=== PATIENT | female | born 1975 | race Caucasian/White ===

== ENCOUNTER 2018-01-10 15:22 | Emergency (ER) | payer OTHER, MEDICAID ==
[~2018-01-10] VITALS: Ht 170.2 cm; Wt 80.0 kg
[~2018-01-10 15:22] MED LIST: ASPI81TA33 PO; FLUO-191 PO; GABA-533 PO
[2018-01-10] MEDS ORDERED: PREG50 PO (15:29)
[2018-01-10] MEDS ORDERED: BREX1TAB PO (15:29)
[2018-01-10] MEDS ORDERED: ONDANSETRON HCL 4 MG/2 ML VIAL IVP ONE (16:30)
[2018-01-10] MEDS ORDERED: SODIUM CHLORIDE 0.9% 1,000 ML IV ONE (16:30)
[2018-01-10] MEDS ORDERED: DiphenhydrAMINE HCL 50 MG/ML VIAL IVP ONE (16:30)
[2018-01-10] MEDS ORDERED: KETOROLAC TROMETHAMINE 30 MG/ML VIAL IVP ONE (16:30)
[2018-01-10] MEDS ORDERED: MORPHINE SULFATE 4 MG/ML SYRINGE IVP ONE (18:00)
[2018-01-10 19:03] VITALS: BP 111/59
== END 2018-01-10 19:17 | disposition home or self-care (01) ==
LOC: EDUNIT# 15:22 → EMS 15:24
DX: G43.909 Migraine, unspecified, not intractable, without status migrainosus (principal); G35 Multiple sclerosis; G89.29 Other chronic pain; F17.210 Nicotine dependence, cigarettes, uncomplicated; Z79.82 Long term (current) use of aspirin; Z86.73 Personal history of transient ischemic attack (TIA), and cerebral infarction without residual deficits
CPT/HCPCS: 70450; 82962; 96374; 96375; 99285; 99406; J1200; J1885; J2270; J2405; J7030

== ENCOUNTER 2018-05-08 08:24 | Emergency (ER) | payer OTHER, MEDICAID ==
[~2018-05-08] VITALS: Ht 170.2 cm; Wt 88.6 kg
[~2018-05-08 08:24] MED LIST changes: -ASPI81TA33 PO; +ASPI81TA87 PO; +BREX1TAB PO; +PREG50 PO
[2018-05-08] MEDS ORDERED: [UNRECOGNIZED DRUG - REMARK] PO (08:30)
[2018-05-08 10:34] VITALS: BP 134/84
[2018-05-08] MEDS ORDERED: HYDROCODONE/ACETAMINOPHEN 5-325 MG TABLET PO ONE (11:00)
[2018-05-08] MEDS ORDERED: KETOROLAC TROMETHAMINE 30 MG/ML VIAL IM ONE (11:00)
== END 2018-05-08 12:26 | disposition home or self-care (01) ==
LOC: EMS 08:29
DX: S76.011A Strain of muscle, fascia and tendon of right hip, initial encounter (principal); S76.012A Strain of muscle, fascia and tendon of left hip, initial encounter; F17.210 Nicotine dependence, cigarettes, uncomplicated; G89.29 Other chronic pain; Z86.73 Personal history of transient ischemic attack (TIA), and cerebral infarction without residual deficits; X58.XXXA Exposure to other specified factors, initial encounter; Y93.89 Activity, other specified; Y92.89 Other specified places as the place of occurrence of the external cause; Y99.8 Other external cause status
CPT/HCPCS: 73521; 96372; 99284; J1885

== ENCOUNTER 2018-09-06 20:26 | Emergency (ER) | payer OTHER, MEDICAID ==
[~2018-09-06] VITALS: Ht 170.2 cm; Wt 88.0 kg
[~2018-09-06 20:26] MED LIST changes: -ASPI81TA87 PO; -FLUO-191 PO; -GABA-533 PO; -PREG50 PO; +[UNRECOGNIZED DRUG - REMARK] PO
[2018-09-06] MEDS ORDERED: GABA-531 PO (21:49)
[2018-09-06 22:03] LABS: AMPHET/METH SCREEN,URINE NEGATIVE (NEGATIVE); BARBITURATE SCREEN, URINE NEGATIVE (NEGATIVE); BENZODIAZEPINES SCREEN,URINE NEGATIVE (NEGATIVE); CANNABINOID SCREEN,URINE POSITIVE (NEGATIVE); COCAINE SCREEN,URINE NEGATIVE (NEGATIVE); METHADONE SCREEN, URINE NEGATIVE (NEGATIVE); OPIATE SCREEN,URINE NEGATIVE (NEGATIVE); PHENCYCLIDINE SCREEN,URINE NEGATIVE (NEGATIVE)
[2018-09-06 22:13] LABS: BASOPHILS % (AUTO) 1.2 % (0.0-2.0); EOSINOPHILS % (AUTO) 2.8 % (1.0-6.0); HEMATOCRIT 39.9 % (36-46); HEMOGLOBIN 13.5 g/dL (12.0-16.0); LYMPHOCYTES % (AUTO) 43.2 % (22.0-44.0); MEAN CORPUSCULAR HEMOGLOBIN 32.3 pg (26.0-34.0); MEAN CORPUSCULAR HGB CONC 33.9 G/dL (31.0-37.0); MEAN CORPUSCULAR VOLUME 95 fL (80-100); MONOCYTES # (AUTO) 0.4 K/uL (0.1-1.0); MONOCYTES % (AUTO) 6.1 % (2.0-9.0); NEUTROPHILS # (AUTO) 3.2 K/uL (1.8-7.7); NEUTROPHILS % (AUTO) 46.7 % (40.0-70.0); PLATELET COUNT (AUTO) 172 K/uL (150-450); RED BLOOD CELL COUNT(AUTO) 4.19 MIL/uL (4.00-5.20); RED CELL DISTRIBUTION WIDTH 14.2 % (11.5-14.5)
[2018-09-06 22:24] LABS: ANION GAP 13 mmol/L (8-16); CALCIUM, TOTAL 8.5 mg/dL (8.8-10.5); CARBON DIOXIDE 20 mmol/L (22-29); CHLORIDE 108 mmol/L (98-107); GLOMERULAR FILTR. RATE CALC > 60 mL/min (>60); GLUCOSE,RANDOM 91 mg/dL (70-110); POTASSIUM 3.8 mmol/L (3.5-5.1); SODIUM SERUM 141 mmol/L (136-145); UREA NITROGEN, BLOOD 4 mg/dL (7-18)
[2018-09-06 22:30] LABS: ALANINE AMINOTRANSFERASE 16 U/L (12-78); ALBUMIN 3.8 g/dL (3.4-5.0); ALKALINE PHOSPHATASE 69 U/L (46-116); ASPARTATE AMINOTRANSFERASE 9 U/L (15-37); BILIRUBIN,TOTAL 0.2 mg/dL (0.1-1.0); TOTAL PROTEIN, SERUM 7.1 g/dL (6.4-8.2)
[2018-09-06] MEDS ORDERED: HALOPERIDOL 5 MG TABLET PO ONE (22:30)
[2018-09-06 23:11] VITALS: BP 113/71
== END 2018-09-06 23:15 | disposition home or self-care (01) ==
LOC: EMS 20:27
DX: F25.9 Schizoaffective disorder, unspecified (principal); F31.9 Bipolar disorder, unspecified; F17.210 Nicotine dependence, cigarettes, uncomplicated; F12.90 Cannabis use, unspecified, uncomplicated; G89.29 Other chronic pain; Z86.73 Personal history of transient ischemic attack (TIA), and cerebral infarction without residual deficits
CPT/HCPCS: 36415; 80053; 80307; 85025; 99285; G0480

== ENCOUNTER 2020-03-09 10:50 | Emergency (ER) | payer OTHER, MEDICAID ==
[~2020-03-09] VITALS: Ht 167.6 cm; Wt 79.1 kg
[~2020-03-09 10:50] MED LIST changes: +GABA-1181 PO; -[UNRECOGNIZED DRUG - REMARK] PO
[2020-03-09] MEDS ORDERED: ARIP5TAB8 PO (11:19)
[2020-03-09] MEDS ORDERED: ERGO500054 PO (11:19)
[2020-03-09] MEDS ORDERED: SERT50TA12 PO (11:19)
[2020-03-09 12:02] LABS: EOSINOPHILS % (AUTO) 5.4 % (1.0-6.0); HEMATOCRIT 41.9 % (36-46); HEMOGLOBIN 13.9 g/dL (12.0-16.0); LYMPHOCYTES # (AUTO) 1.6 K/uL (1.0-4.8); LYMPHOCYTES % (AUTO) 31.6 % (22.0-44.0); MEAN CORPUSCULAR HEMOGLOBIN 32.6 pg (26.0-34.0); MEAN CORPUSCULAR HGB CONC 33.2 G/dL (31.0-37.0); MEAN CORPUSCULAR VOLUME 98 fL (80-100); MONOCYTES # (AUTO) 0.4 K/uL (0.1-1.0); MONOCYTES % (AUTO) 7.5 % (2.0-9.0); NEUTROPHILS # (AUTO) 2.7 K/uL (1.8-7.7); NEUTROPHILS % (AUTO) 54.5 % (40.0-70.0); PLATELET COUNT (AUTO) 171 K/uL (150-450); RED BLOOD CELL COUNT(AUTO) 4.26 MIL/uL (4.00-5.20); RED CELL DISTRIBUTION WIDTH 14.2 % (11.5-14.5)
[2020-03-09 12:24] LABS: ANION GAP 8 mmol/L (8-16); CALCIUM, TOTAL 8.8 mg/dL (8.8-10.5); CARBON DIOXIDE 25 mmol/L (22-29); CHLORIDE 108 mmol/L (98-107); CREATININE 0.79 mg/dL (0.60-1.30); GLOMERULAR FILTR. RATE CALC > 60 mL/min (>60); GLUCOSE,RANDOM 94 mg/dL (70-110); POTASSIUM 3.9 mmol/L (3.5-5.1); SODIUM SERUM 141 mmol/L (136-145); UREA NITROGEN, BLOOD 8 mg/dL (7-18)
[2020-03-09 12:26] LABS: B-TYPE NATRIURETIC PEPTIDE 48 pg/mL (0-100)
[2020-03-09 12:29] LABS: ALANINE AMINOTRANSFERASE 25 U/L (12-78); ALKALINE PHOSPHATASE 67 U/L (46-116); ASPARTATE AMINOTRANSFERASE 14 U/L (15-37); BILIRUBIN,TOTAL 0.2 mg/dL (0.1-1.0); TOTAL PROTEIN, SERUM 7.4 g/dL (6.4-8.2)
[2020-03-09 12:56] VITALS: BP 102/58
== END 2020-03-09 13:11 | disposition home or self-care (01) ==
LOC: EMS 10:53
DX: R06.02 Shortness of breath (principal); F17.210 Nicotine dependence, cigarettes, uncomplicated; F12.90 Cannabis use, unspecified, uncomplicated; F32.89 Other specified depressive episodes; Z03.818 Encounter for observation for suspected exposure to other biological agents ruled out; Z86.73 Personal history of transient ischemic attack (TIA), and cerebral infarction without residual deficits; Z79.899 Other long term (current) drug therapy
CPT/HCPCS: 85379; 87635; 93005

== ENCOUNTER 2020-05-04 16:54 | Emergency (ER) | payer OTHER, MEDICAID ==
[~2020-05-04 16:54] MED LIST changes: +ARIP5TAB8 PO; -BREX1TAB PO; +ERGO500054 PO; -GABA-1181 PO; +SERT50TA12 PO
[2020-05-04 17:49] LABS: BASOPHILS % (AUTO) 0.9 % (0.0-2.0); EOSINOPHILS % (AUTO) 2.9 % (1.0-6.0); HEMATOCRIT 37.9 % (36-46); MEAN CORPUSCULAR HEMOGLOBIN 33.4 pg (26.0-34.0); MEAN CORPUSCULAR HGB CONC 34.3 G/dL (31.0-37.0); MEAN CORPUSCULAR VOLUME 98 fL (80-100); MONOCYTES # (AUTO) 0.4 K/uL (0.1-1.0); MONOCYTES % (AUTO) 6.3 % (2.0-9.0); NEUTROPHILS # (AUTO) 3.7 K/uL (1.8-7.7); NEUTROPHILS % (AUTO) 57.9 % (40.0-70.0); PLATELET COUNT (AUTO) 157 K/uL (150-450); RED BLOOD CELL COUNT(AUTO) 3.89 MIL/uL (4.00-5.20)
[2020-05-04 18:05] LABS: ANION GAP 9 mmol/L (8-16); CARBON DIOXIDE 26 mmol/L (22-29); CHLORIDE 106 mmol/L (98-107); CREATININE 0.77 mg/dL (0.60-1.30); GLOMERULAR FILTR. RATE CALC > 60 mL/min (>60); GLUCOSE,RANDOM 93 mg/dL (70-110); POTASSIUM 3.6 mmol/L (3.5-5.1); SODIUM SERUM 141 mmol/L (136-145); UREA NITROGEN, BLOOD 9 mg/dL (7-18)
[2020-05-04 18:13] LABS: B-TYPE NATRIURETIC PEPTIDE 31 pg/mL (0-100)
[2020-05-04 18:19] LABS: LACTIC ACID 0.5 mmol/L (0.4-2.0)
[2020-05-04 18:23] LABS: ALANINE AMINOTRANSFERASE 28 U/L (12-78); ALBUMIN 3.7 g/dL (3.4-5.0); ALKALINE PHOSPHATASE 61 U/L (46-116); ASPARTATE AMINOTRANSFERASE 18 U/L (15-37); BILIRUBIN,TOTAL 0.3 mg/dL (0.1-1.0); CREATINE KINASE, TOTAL ONLY 52 U/L (26-192); FREE T4 (FREE THYROXINE) 1.05 ng/dL (0.76-1.46); HCG,QUANTITATIVE 1 mIU/mL (0-6); THYROID STIMULATING HORMONE 1.98 uIU/mL (0.36-3.74); TOTAL PROTEIN, SERUM 7.2 g/dL (6.4-8.2)
[2020-05-04 18:58] LABS: APPEARANCE,URINE CLEAR (CLEAR); BILIRUBIN,URINE NEGATIVE (NEGATIVE); GLUCOSE, URINE (UA) NEGATIVE (NEGATIVE); KETONES,URINE NEGATIVE (NEGATIVE); LEUKOCYTE ESTERASE ,URINE NEGATIVE (NEGATIVE); NITRATE,URINE NEGATIVE (NEGATIVE); OCCULT BLOOD,URINE NEGATIVE (NEGATIVE); PROTEIN,URINE NEGATIVE (NEGATIVE); UROBILINOGEN,URINE 0.2 mg/dL (<=1.0)
[2020-05-04 19:29] VITALS: BP 132/73
[2020-05-04 19:34] LABS: BACTERIA,URINE None Seen /HPF (None Seen); RBC,URINE None Seen /HPF (0-2); SQUAMOUS EPITHELIAL CELL,UR Few /LPF (None Seen); WBC,URINE 0-2 /HPF (0-5)
== END 2020-05-04 20:03 | disposition home or self-care (01) ==
LOC: EMS 16:54
DX: R00.2 Palpitations (principal); R53.83 Other fatigue; F32.9 Major depressive disorder, single episode, unspecified; F17.210 Nicotine dependence, cigarettes, uncomplicated; F12.90 Cannabis use, unspecified, uncomplicated
CPT/HCPCS: 83605; 83735; 84439; 84443; 85379; 93005

== ENCOUNTER 2022-04-15 17:35 | Emergency (ER) | payer OTHER, MEDICAID ==
[~2022-04-15] VITALS: Ht 170.2 cm; Wt 84.5 kg
[~2022-04-15 17:35] MED LIST changes: +ARIP5TAB37 PO; -ARIP5TAB8 PO; +SERT-158 PO; -SERT50TA12 PO
[2022-04-15] MEDS ORDERED: ERGO500054 PO (18:15)
[2022-04-15] MEDS ORDERED: CYCLOBENZAPRINE HCL 10 MG TABLET PO ONE (18:15)
[2022-04-15] MEDS ORDERED: VENL-68 PO (18:15)
[2022-04-15] MEDS ORDERED: HYDROCODONE/ACETAMINOPHEN 5-325 MG TABLET PO ONE (18:15)
[2022-04-15] MEDS ORDERED: LIDOCAINE 5% TRANSDERMAL PATCH TD ONE (18:15)
[2022-04-15 19:08] VITALS: BP 109/64
== END 2022-04-15 19:42 | disposition home or self-care (01) ==
LOC: EMS 17:50
DX: M54.16 Radiculopathy, lumbar region (principal); F32.A Depression, unspecified; G35 Multiple sclerosis; M06.9 Rheumatoid arthritis, unspecified; F17.210 Nicotine dependence, cigarettes, uncomplicated; F12.90 Cannabis use, unspecified, uncomplicated; Z86.73 Personal history of transient ischemic attack (TIA), and cerebral infarction without residual deficits; Z87.19 Personal history of other diseases of the digestive system
CPT/HCPCS: 99284; Z7502; Z7610

== ENCOUNTER 2023-03-04 08:27 | Inpatient (IN) | payer OTHER ==
[~2023-03-04] VITALS: Ht 170.2 cm; Wt 80.5 kg
[~2023-03-04 08:27] MED LIST changes: +VENL-68 PO
[2023-03-04] MEDS ORDERED: IOHEXOL 350 MG/ML 100 ML VIAL ONE (09:38)
[2023-03-04] MEDS ORDERED: SODIUM CHLORIDE 0.9% 100 ML ONE (09:38)
[2023-03-04 09:44] LABS: BASOPHILS % (AUTO) 0.9 % (0.0-2.0); EOSINOPHILS % (AUTO) 1.5 % (1.0-6.0); HEMATOCRIT 37.4 % (36-46); HEMOGLOBIN 12.5 g/dL (12.0-16.0); LYMPHOCYTES # (AUTO) 1.3 K/uL (1.0-4.8); LYMPHOCYTES % (AUTO) 29.1 % (22.0-44.0); MEAN CORPUSCULAR HEMOGLOBIN 32.5 pg (26.0-34.0); MEAN CORPUSCULAR HGB CONC 33.4 G/dL (31.0-37.0); MEAN CORPUSCULAR VOLUME 97 fL (80-100); MONOCYTES # (AUTO) 0.3 K/uL (0.1-1.0); MONOCYTES % (AUTO) 7.4 % (2.0-9.0); NEUTROPHILS # (AUTO) 2.7 K/uL (1.8-7.7); NEUTROPHILS % (AUTO) 61.1 % (40.0-70.0); PLATELET COUNT (AUTO) 181 K/uL (150-450); RED BLOOD CELL COUNT(AUTO) 3.85 MIL/uL (4.00-5.20); RED CELL DISTRIBUTION WIDTH 14.2 % (11.5-14.5)
[2023-03-04 09:53] LABS: ANION GAP 10 mmol/L (8-16); CALCIUM, TOTAL 8.6 mg/dL (8.8-10.5); CARBON DIOXIDE 23 mmol/L (22-29); CHLORIDE 107 mmol/L (98-107); CREATININE 0.69 mg/dL (0.60-1.30); GLOMERULAR FILTR. RATE CALC > 60 mL/min (>60); GLUCOSE,RANDOM 103 mg/dL (70-110); POTASSIUM 3.8 mmol/L (3.5-5.1); SODIUM SERUM 140 mmol/L (136-145); UREA NITROGEN, BLOOD 8 mg/dL (7-18)
[2023-03-04 09:59] LABS: INR 0.9 (0.9-1.1); PROTHROMBIN TIME 10.1 SEC (9.4-11.6)
[2023-03-04 10:07] LABS: ALANINE AMINOTRANSFERASE 50 U/L (12-78); ALBUMIN 3.4 g/dL (3.4-5.0); ALKALINE PHOSPHATASE 73 U/L (46-116); ASPARTATE AMINOTRANSFERASE 20 U/L (15-37); BILIRUBIN,TOTAL 0.5 mg/dL (0.1-1.0); HCG,QUANTITATIVE < 1 mIU/mL (0-6); LIPASE 70 U/L (73-393); TOTAL PROTEIN, SERUM 6.6 g/dL (6.4-8.2)
[2023-03-04] MEDS ORDERED: MORPHINE SULFATE 4 MG/ML SYRINGE IVP ONE (12:30)
[2023-03-04] MEDS ORDERED: CIPROFLOXACIN 400 MG/D5% WATER 200 ML IV ONE (12:30)
[2023-03-04] MEDS ORDERED: MetroNIDAZOLE 250 MG TABLET PO ONE (12:30)
[2023-03-04] MEDS ORDERED: ONDANSETRON HCL 4 MG/2 ML VIAL IVP ONE (12:30)
[2023-03-04] MEDS ORDERED: SODIUM CHLORIDE 0.9% 1,000 ML IV ONE (14:00)
[2023-03-04] MEDS ORDERED: ONDANSETRON HCL 4 MG/2 ML VIAL IVP PRN (14:00)
[2023-03-04] MEDS ORDERED: ACETAMINOPHEN 325 MG TABLET PO PRN ×2 (14:00→18:45)
[2023-03-04] MEDS ORDERED: 0.9% SODIUM CHLORIDE 10 ML SYRINGE IVP PRN (14:00)
[2023-03-04 14:10] LABS: APPEARANCE,URINE CLEAR (CLEAR); BILIRUBIN,URINE NEGATIVE (NEGATIVE); GLUCOSE, URINE (UA) NEGATIVE (NEGATIVE); KETONES,URINE NEGATIVE (NEGATIVE); LEUKOCYTE ESTERASE ,URINE SMALL (NEGATIVE); NITRATE,URINE NEGATIVE (NEGATIVE); OCCULT BLOOD,URINE NEGATIVE (NEGATIVE); PROTEIN,URINE NEGATIVE (NEGATIVE); UROBILINOGEN,URINE <=1.0 mg/dL (<=1.0)
[2023-03-04 14:15] LABS: SPECIFIC GRAVITIY, URINE > 1.050 (1.003-1.030)
[2023-03-04 14:23] LABS: RBC,URINE None Seen /HPF (0-2)
[2023-03-04 14:24] LABS: BACTERIA,URINE Few /HPF (None Seen); SQUAMOUS EPITHELIAL CELL,UR Few /LPF (None Seen)
[2023-03-04 18:13] VITALS: BP 146/78
[2023-03-04] MEDS ORDERED: IPRATROPIUM BROMIDE 0.5 MG/2.5 ML NEB SOLUTION NEB PRN (18:45)
[2023-03-04] MEDS ORDERED: ZOLPIDEM TARTRATE 5 MG TABLET PO PRN (18:45)
[2023-03-04] MEDS ORDERED: ALBUTEROL SULFATE 2.5 MG/0.5 ML NEB SOLUTION NEB PRN (18:45)
[2023-03-04] MEDS ORDERED: HYDROCODONE/ACETAMINOPHEN 5-325 MG TABLET PO PRN (18:45)
[2023-03-04] MEDS ORDERED: BISACODYL 10 MG RECTAL RECTAL SUPPOSITORY PR PRN (18:45)
[2023-03-04] MEDS ORDERED: MAGNESIUM HYDROXIDE SUSPENSION 30 ML UDCUP PO PRN (18:45)
[2023-03-04 20:01] VITALS: BP 135/82
[2023-03-04] MEDS: SODIUM CHLORIDE 0.9% 1,000 ML IV SCH (20:04)
[2023-03-04] MEDS: DOCUSATE SODIUM 100 MG CAPSULE PO SCH (20:15)
[2023-03-05] MEDS: ONDANSETRON HCL 4 MG/2 ML VIAL IVP PRN ×2 (01:22→08:43)
[2023-03-05 04:31] VITALS: BP 137/70
[2023-03-05] MEDS: SODIUM CHLORIDE 0.9% 1,000 ML IV SCH ×2 (06:28→20:16)
[2023-03-05 06:35] VITALS: BP 129/75
[2023-03-05 07:25] LABS: BASOPHILS % (AUTO) 0.7 % (0.0-2.0); EOSINOPHILS % (AUTO) 1.1 % (1.0-6.0); HEMOGLOBIN 11.2 g/dL (12.0-16.0); LYMPHOCYTES # (AUTO) 1.9 K/uL (1.0-4.8); LYMPHOCYTES % (AUTO) 47.8 % (22.0-44.0); MEAN CORPUSCULAR HEMOGLOBIN 33.5 pg (26.0-34.0); MEAN CORPUSCULAR HGB CONC 33.9 G/dL (31.0-37.0); MEAN CORPUSCULAR VOLUME 99 fL (80-100); MONOCYTES # (AUTO) 0.3 K/uL (0.1-1.0); MONOCYTES % (AUTO) 8.7 % (2.0-9.0); NEUTROPHILS # (AUTO) 1.7 K/uL (1.8-7.7); NEUTROPHILS % (AUTO) 41.7 % (40.0-70.0); PLATELET COUNT (AUTO) 131 K/uL (150-450); RED BLOOD CELL COUNT(AUTO) 3.34 MIL/uL (4.00-5.20); RED CELL DISTRIBUTION WIDTH 14.2 % (11.5-14.5)
[2023-03-05 07:39] LABS: ALANINE AMINOTRANSFERASE 36 U/L (12-78); ALBUMIN 2.8 g/dL (3.4-5.0); ALKALINE PHOSPHATASE 70 U/L (46-116); ANION GAP 5 mmol/L (8-16); ASPARTATE AMINOTRANSFERASE 16 U/L (15-37); BILIRUBIN,TOTAL 0.5 mg/dL (0.1-1.0); CARBON DIOXIDE 25 mmol/L (22-29); CHLORIDE 109 mmol/L (98-107); CREATININE 0.72 mg/dL (0.60-1.30); GLOMERULAR FILTR. RATE CALC > 60 mL/min (>60); GLUCOSE,RANDOM 87 mg/dL (70-110); POTASSIUM 3.8 mmol/L (3.5-5.1); SODIUM SERUM 139 mmol/L (136-145); TOTAL PROTEIN, SERUM 5.6 g/dL (6.4-8.2); UREA NITROGEN, BLOOD 6 mg/dL (7-18)
[2023-03-05 08:10] VITALS: BP 149/69
[2023-03-05 08:14] VITALS: BP 132/73
[2023-03-05] MEDS: DOCUSATE SODIUM 100 MG CAPSULE PO SCH ×3 (08:27→20:17)
[2023-03-05] MEDS: PANTOPRAZOLE SODIUM 40 MG/VIAL IVP SCH (08:29)
[2023-03-05] MEDS: MORPHINE SULFATE 2 MG/ML SYRINGE IVP PRN ×2 (10:30→17:57)
[2023-03-05] MEDS ORDERED: RINGERS SOLUTION,LACTATED 1,000 ML IV ONE (13:32)
[2023-03-05] MEDS ORDERED: IOHEXOL 240 MG/ML 20 ML VIAL ONE (14:32)
[2023-03-05] MEDS ORDERED: SODIUM CL IRRIG SOLN BAG 3,000 ML IRRIG ONE (14:32)
[2023-03-05] MEDS ORDERED: FentaNYL CITRATE PF 100 MCG/2 ML VIAL IVP PRN (15:30)
[2023-03-05] MEDS ORDERED: HYDROmorphone HCL 2 MG/ML SYRINGE IVP PRN (15:30)
[2023-03-05] MEDS ORDERED: MEPERIDINE-PF 25 MG/ML VIAL IVP PRN (15:30)
[2023-03-05 18:00] VITALS: BP 152/85
[2023-03-05 19:40] VITALS: BP 142/77
[2023-03-05] MEDS: OXYGEN THERAPY IH SCH (20:16)
[2023-03-05] MEDS: CEPHALEXIN MONOHYDRATE 500 MG CAPSULE PO SCH (20:17)
[2023-03-06] MEDS: SODIUM CHLORIDE 0.9% 1,000 ML IV SCH ×2 (00:45→06:23)
[2023-03-06] MEDS: MORPHINE SULFATE 2 MG/ML SYRINGE IVP PRN (01:15)
[2023-03-06 04:20] VITALS: BP 142/77
[2023-03-06] MEDS ORDERED: KETOROLAC TROMETHAMINE 60 MG/2 ML VIAL IM ONE (05:31)
[2023-03-06] MEDS ORDERED: DEXAMETHASONE SOD PHOS 4 MG/ML VIAL IVP ONE (05:31)
[2023-03-06] MEDS ORDERED: ONDANSETRON HCL 4 MG/2 ML VIAL IVP ONE (05:31)
[2023-03-06] MEDS ORDERED: MIDAZOLAM HCL 2 MG/2 ML VIAL IVP ONE (05:31)
[2023-03-06] MEDS ORDERED: LIDOCAINE/PF 2% 5 ML SYRINGE IVP ONE (05:31)
[2023-03-06] MEDS ORDERED: 0.9% SODIUM CHLORIDE 10 ML VIAL IVP ONE (05:31)
[2023-03-06] MEDS ORDERED: PROPOFOL 1% 20 ML VIAL IVP ONE (05:31)
[2023-03-06] MEDS ORDERED: FentaNYL CITRATE PF 100 MCG/2 ML VIAL IVP ONE (05:31)
[2023-03-06] MEDS ORDERED: ROCURONIUM BROMIDE 10 MG/ML 5 ML VIAL IVP ONE (05:31)
[2023-03-06] MEDS: OXYGEN THERAPY IH SCH (08:00)
[2023-03-06] MEDS: PANTOPRAZOLE SODIUM 40 MG/VIAL IVP SCH (08:18)
[2023-03-06] MEDS: CEPHALEXIN MONOHYDRATE 500 MG CAPSULE PO SCH ×2 (08:18→13:26)
[2023-03-06] MEDS: DOCUSATE SODIUM 100 MG CAPSULE PO SCH (08:18)
[2023-03-06 08:19] VITALS: BP_SYST 132; BP_SYST 144; BP_DIAS 78; BP_DIAS 92
[2023-03-06] MEDS ORDERED: CEPH-558 PO (09:29)
[2023-03-06 11:36] LABS: BASOPHILS % (AUTO) 0.5 % (0.0-2.0); EOSINOPHILS % (AUTO) 0 % (1.0-6.0); HEMATOCRIT 34.5 % (36-46); HEMOGLOBIN 11.6 g/dL (12.0-16.0); LYMPHOCYTES # (AUTO) 1.5 K/uL (1.0-4.8); LYMPHOCYTES % (AUTO) 18.2 % (22.0-44.0); MEAN CORPUSCULAR HEMOGLOBIN 33.1 pg (26.0-34.0); MEAN CORPUSCULAR HGB CONC 33.5 G/dL (31.0-37.0); MEAN CORPUSCULAR VOLUME 99 fL (80-100); MONOCYTES # (AUTO) 0.6 K/uL (0.1-1.0); MONOCYTES % (AUTO) 7.2 % (2.0-9.0); NEUTROPHILS # (AUTO) 6.2 K/uL (1.8-7.7); NEUTROPHILS % (AUTO) 74.1 % (40.0-70.0); PLATELET COUNT (AUTO) 141 K/uL (150-450); RED CELL DISTRIBUTION WIDTH 14.3 % (11.5-14.5)
== END 2023-03-06 15:00 | disposition home or self-care (01) | DRG 660 ==
LOC: EMS 08:27 → 6S 16:38
PROVIDERS: ADMIT Hospitalist; ATTEND Hospitalist
PROC: BT1F1ZZ Fluoroscopy of Left Kidney, Ureter and Bladder using Low Osmolar Contrast (ICD-10-PCS; 2023-03-05)
PROC: 0T778DZ Dilation of Left Ureter with Intraluminal Device, Via Natural or Artificial Opening Endoscopic (ICD-10-PCS; principal; 2023-03-05 16:15)
DX: N13.2 Hydronephrosis with renal and ureteral calculous obstruction (principal); D61.818 Other pancytopenia; K52.9 Noninfective gastroenteritis and colitis, unspecified; K57.90 Diverticulosis of intestine, part unspecified, without perforation or abscess without bleeding; G35 Multiple sclerosis; D64.9 Anemia, unspecified; N35.92 Unspecified urethral stricture, female; N28.82 Megaloureter; F41.9 Anxiety disorder, unspecified; G89.29 Other chronic pain; F99 Mental disorder, not otherwise specified; M06.8A Other specified rheumatoid arthritis, other specified site; F32.A Depression, unspecified; Z86.73 Personal history of transient ischemic attack (TIA), and cerebral infarction without residual deficits; Z87.891 Personal history of nicotine dependence
CPT/HCPCS: 74177; 80053; 81001; 83690; 84702; 85025; 85610; 85730; 87081; 87086; 87186; 93005; 99285; C9113; G0238; J0690; J0744; J1100; J1885; J2250; J2270; J2405; J2704; J3010; J3490; J7030; J7050; J7120; Q9966; Q9967

== ENCOUNTER 2023-04-23 00:01 | Emergency (ER) | payer OTHER ==
[~2023-04-23] VITALS: Ht 170.2 cm; Wt 80.9 kg
[~2023-04-23 00:01] MED LIST changes: -ARIP5TAB37 PO; +CEPH-558 PO; -ERGO500054 PO; -SERT-158 PO; -VENL-68 PO
[2023-04-23 00:24] VITALS: TEMP 97.7
[2023-04-23] MEDS ORDERED: ERGO500054 PO (00:40)
[2023-04-23] MEDS ORDERED: VENL-68 PO (00:40)
[2023-04-23] MEDS ORDERED: SERT-158 PO (00:40)
[2023-04-23] MEDS ORDERED: ARIP5TAB37 PO (00:40)
[2023-04-23] MEDS ORDERED: KETOROLAC TROMETHAMINE 30 MG/ML VIAL IVP ONE (00:45)
[2023-04-23 00:56] LABS: BASOPHILS % (AUTO) 0.7 % (0.0-2.0); EOSINOPHILS % (AUTO) 1.5 % (1.0-6.0); HEMATOCRIT 37.2 % (36-46); HEMOGLOBIN 12.6 g/dL (12.0-16.0); LYMPHOCYTES % (AUTO) 25.9 % (22.0-44.0); MEAN CORPUSCULAR HEMOGLOBIN 33.1 pg (26.0-34.0); MEAN CORPUSCULAR HGB CONC 33.9 G/dL (31.0-37.0); MEAN CORPUSCULAR VOLUME 98 fL (80-100); MONOCYTES # (AUTO) 0.6 K/uL (0.1-1.0); MONOCYTES % (AUTO) 7.4 % (2.0-9.0); NEUTROPHILS # (AUTO) 4.9 K/uL (1.8-7.7); NEUTROPHILS % (AUTO) 64.5 % (40.0-70.0); PLATELET COUNT (AUTO) 165 K/uL (150-450); RED CELL DISTRIBUTION WIDTH 14.3 % (11.5-14.5)
[2023-04-23 01:07] LABS: ANION GAP 10 mmol/L (8-16); CARBON DIOXIDE 26 mmol/L (22-29); CHLORIDE 107 mmol/L (98-107); CREATININE 0.96 mg/dL (0.60-1.30); GLOMERULAR FILTR. RATE CALC > 60 mL/min (>60); GLUCOSE,RANDOM 114 mg/dL (70-110); POTASSIUM 3.7 mmol/L (3.5-5.1); SODIUM SERUM 143 mmol/L (136-145)
[2023-04-23 01:13] LABS: ALANINE AMINOTRANSFERASE 15 U/L (12-78); ALBUMIN 3.3 g/dL (3.4-5.0); ALKALINE PHOSPHATASE 78 U/L (46-116); ASPARTATE AMINOTRANSFERASE 11 U/L (15-37); BILIRUBIN,TOTAL 0.2 mg/dL (0.1-1.0); LIPASE 81 U/L (73-393); TOTAL PROTEIN, SERUM 6.6 g/dL (6.4-8.2)
[2023-04-23 02:29] LABS: APPEARANCE,URINE CLEAR (CLEAR); BILIRUBIN,URINE NEGATIVE (NEGATIVE); GLUCOSE, URINE (UA) NEGATIVE (NEGATIVE); KETONES,URINE NEGATIVE (NEGATIVE); LEUKOCYTE ESTERASE ,URINE SMALL (NEGATIVE); NITRATE,URINE NEGATIVE (NEGATIVE); OCCULT BLOOD,URINE LARGE (NEGATIVE); PH,URINE 6.5 (5.0-8.0); PROTEIN,URINE 30-70 mg/dL (NEGATIVE); SPECIFIC GRAVITIY, URINE 1.008 (1.003-1.030); UROBILINOGEN,URINE <=1.0 mg/dL (<=1.0)
[2023-04-23 02:38] LABS: BACTERIA,URINE None Seen /HPF (None Seen); SQUAMOUS EPITHELIAL CELL,UR Few /LPF (None Seen)
[2023-04-23 02:45] VITALS: BP 115/61; PULSE 52; RESP 18
[2023-04-23] MEDS ORDERED: CefTRIAXone 1 GM/DEXTROSE 50 ML IV ONE (03:00)
== END 2023-04-23 04:15 | disposition home or self-care (01) ==
LOC: EMS 00:01
DX: N39.0 Urinary tract infection, site not specified (principal); F41.9 Anxiety disorder, unspecified; M19.90 Unspecified osteoarthritis, unspecified site; G43.909 Migraine, unspecified, not intractable, without status migrainosus; F20.9 Schizophrenia, unspecified; G35 Multiple sclerosis; G89.29 Other chronic pain; F31.9 Bipolar disorder, unspecified; F17.210 Nicotine dependence, cigarettes, uncomplicated; F12.90 Cannabis use, unspecified, uncomplicated; Z98.890 Other specified postprocedural states
CPT/HCPCS: 99284; 96365; 96375; 80053; 81001; 83690; 85025; 36415; J0696; J1885

== ENCOUNTER 2024-01-16 10:10 | Emergency (ER) | payer OTHER ==
[~2024-01-16] VITALS: Ht 170.2 cm; Wt 85.0 kg
[~2024-01-16 10:10] MED LIST changes: +ARIP5TAB37 PO; +ERGO500054 PO; +SERT-158 PO; +VENL-68 PO
[2024-01-16 10:13] VITALS: TEMP 98.5
[2024-01-16] MEDS: ACETAMINOPHEN 500 MG TABLET PO ONE (11:33)
[2024-01-16] MEDS: METHOCARBAMOL 500 MG TABLET PO ONE (11:34)
[2024-01-16] MEDS: KETOROLAC TROMETHAMINE 60 MG/2 ML VIAL IM ONE (11:35)
[2024-01-16 12:41] VITALS: BP 145/82; PULSE 76; RESP 16
[2024-01-16] MEDS ORDERED: ACET-66 PO (12:43)
[2024-01-16] MEDS ORDERED: METH-659 PO (12:44)
[2024-01-16] MEDS ORDERED: IBUP-1554 PO (12:44)
== END 2024-01-16 12:58 | disposition home or self-care (01) ==
LOC: EMS 10:12
DX: S46.911A Strain of unspecified muscle, fascia and tendon at shoulder and upper arm level, right arm, initial encounter (principal); F41.9 Anxiety disorder, unspecified; M19.90 Unspecified osteoarthritis, unspecified site; F32.A Depression, unspecified; G43.909 Migraine, unspecified, not intractable, without status migrainosus; F20.9 Schizophrenia, unspecified; F17.210 Nicotine dependence, cigarettes, uncomplicated; F12.90 Cannabis use, unspecified, uncomplicated; Z98.890 Other specified postprocedural states; X58.XXXA Exposure to other specified factors, initial encounter; Y93.89 Activity, other specified; Y92.89 Other specified places as the place of occurrence of the external cause; Y99.8 Other external cause status
CPT/HCPCS: 99283; 73030; 96372; J1885; 29240